=== PATIENT | female | born 1995 | race Hispanic/Latino ===

== ENCOUNTER 2022-12-31 17:56 | Emergency (ER) | payer OTHER, SELFPAY ==
[2022-12-31] MEDS ORDERED: diphenhydrAMINE 50 MG/ML VIAL ONE (20:27)
[2022-12-31] MEDS ORDERED: Metoclopramide HCl 10 MG/2 ML VIAL ONE (20:28)
[2022-12-31] MEDS ORDERED: Ketorolac Tromethamine 30 MG/ML VIAL ONE (20:28)
[2022-12-31] MEDS ORDERED: Magnesium 2 GM/50 ML BAG (IN WATER) ONE (20:28)
== END 2022-12-31 22:05 | disposition home or self-care (01) ==
LOC: CSHERS 17:56
DX: G43.909 Migraine, unspecified, not intractable, without status migrainosus (principal)
CPT/HCPCS: 96365; 96367; 96375; J1200; J1885; J2765; J3475

== ENCOUNTER 2024-12-08 08:28 | Emergency (ER) | payer SELFPAY ==
[2024-12-08] MEDS ORDERED: Ketorolac Tromethamine 30 MG (1 mL) VIAL ONE (09:32)
[2024-12-08] MEDS ORDERED: Dicyclomine 20 MG TAB ONE (09:32)
[2024-12-08] MEDS ORDERED: Acetaminophen/Codeine 30-300mg Tablet ONE (09:32)
== END 2024-12-08 10:44 | disposition home or self-care (01) ==
LOC: CSHERS 08:28
DX: G43.909 Migraine, unspecified, not intractable, without status migrainosus (principal)
CPT/HCPCS: 96372; 99283; J1885